=== PATIENT | female | born 1950 | race Caucasian/White ===

== ENCOUNTER → 2019-01-18 | Outpatient (CLI) | payer OTHER ==
[~2019-01-18] MED LIST: ACCUNEB SO1.25 MG/1; AROMASIN25 MG PO; ASA81BEC PO; CELEXA 20 MG TA20 M1 PO; CENTRUM SILVER1 EAC3 PO; LETROZOLE2.5 MG PO; LEVOTHYROXIN0.075 MG PO; NEURONTIN 300300 M1 PO; OMEGA-31000 M1 PO; PERCOCET 5-3251 EACH PO; RED YEAST RICE600 M1 PO; VITAMIN D1000 UNI1 PO
== END ==
LOC: M.ULTRA 01-05 16:17
DX: M81.0 Age-related osteoporosis without current pathological fracture (principal); R20.0 Anesthesia of skin; R20.2 Paresthesia of skin

== ENCOUNTER 2020-01-20 09:00 | Emergency (ER) | payer OTHER ==
[~2020-01-20] VITALS: Ht 170.2 cm; Wt 55.3 kg
[2020-01-20] MEDS ORDERED: CYMBALTA20 MG PO (09:10)
[2020-01-20] MEDS ORDERED: VOLTAREN GEL 1100 G1 TOP (09:10)
[2020-01-20] MEDS ORDERED: MEDROLDOSEPACK PO (10:48)
[2020-01-20] MEDS ORDERED: FLEXERIL PO (10:48)
[2020-01-20 11:00] VITALS: BP 109/39
== END 2020-01-20 11:00 | disposition home or self-care (01) ==
LOC: M.ERS 09:00
DX: M25.552 Pain in left hip (principal); K21.9 Gastro-esophageal reflux disease without esophagitis; E03.9 Hypothyroidism, unspecified; Z88.0 Allergy status to penicillin; Z98.51 Tubal ligation status; Z90.89 Acquired absence of other organs; Z85.3 Personal history of malignant neoplasm of breast

== ENCOUNTER → 2020-01-29 | Outpatient (CLI) | payer OTHER ==
[~2020-01-29] MED LIST changes: +CYMBALTA20 MG PO; +FLEXERIL PO; +MEDROLDOSEPACK PO; +VOLTAREN GEL 1100 G1 TOP
== END ==
LOC: M.RAD 15:08
PROVIDERS: ATTEND Nurse Practitioner Family
DX: M81.0 Age-related osteoporosis without current pathological fracture (principal); Z78.0 Asymptomatic menopausal state

== ENCOUNTER → 2021-03-25 | Outpatient (CLI) | payer OTHER | LOC: M.CT 03-18 11:00 | PROVIDERS: ATTEND Nurse Practitioner Family | DX: Z13.6 Encounter for screening for cardiovascular disorders (principal) ==

== ENCOUNTER → 2021-03-25 | Outpatient (CLI) | payer OTHER | LOC: M.RAD 03-18 11:30 | PROVIDERS: ATTEND Nurse Practitioner Family | DX: M81.0 Age-related osteoporosis without current pathological fracture (principal); R81 Glycosuria ==

== ENCOUNTER → 2021-05-28 | Outpatient (CLI) | payer OTHER | LOC: M.ULTRA 07:40 | PROVIDERS: ATTEND Nurse Practitioner Family | DX: R10.9 Unspecified abdominal pain (principal) ==